=== PATIENT | male | born 1980 | race African-American/Black ===

== ENCOUNTER 2017-01-16 14:17 | Emergency (ER) | payer OTHER ==
[2017-01-16 13:53] LABS: URINE SOURCE CLEAN CATCH
[2017-01-16 14:01] LABS: URINE APPEARANCE CLOUDY; URINE BILIRUBIN NEG (NEG); URINE BLOOD TRACE (NEG); URINE COLOR YELLOW; URINE GLUCOSE NEG (NEG); URINE KETONE NEG (NEG); URINE LEUKOCYTE ESTERASE 2+ (NEG); URINE NITRATE NEG (NEG); URINE PH 5.5 (5-8); URINE PROTEIN NEG (NEG); URINE SPECIFIC GRAVITY 1.025 (1.003-1.035); URINE UROBILINOGEN 0.2 MG/DL (NEG)
[2017-01-16 14:03] LABS: CULTURE INDICATED? YES; URINE BACTERIA AUWI NEG (NEGATIVE); URINE SQUAMOUS EPITHELIAL CELL NONE SEEN /[HPF]; UWBCS1 AUWI INNUM (0-5)
[~2017-01-16 14:17] MED LIST: ANTIDIARRHEAL2 MG PO; NAPROSYN500 MG PO; PHENERGAN25 M1 DOB; PREDNISONE1 MG PO; VOLTAREN75 MG PO
[2017-01-19 19:59] LABS: CHLAMYDIA TRACH Not Detected (Not Detected); N GONOR Detected (Not Detected)
== END 2017-01-16 14:25 | disposition home or self-care (01) ==
LOC: CFTX 14:17
PROVIDERS: Physician Assistant
DX: N34.1 Nonspecific urethritis (principal); I10 Essential (primary) hypertension; F32.9 Major depressive disorder, single episode, unspecified; F17.210 Nicotine dependence, cigarettes, uncomplicated; Z88.5 Allergy status to narcotic agent
CPT/HCPCS: 81003; 87086; 87491; 87591; 96372; 99283; J0696